=== PATIENT | male | born 1980 | race Caucasian/White ===

== ENCOUNTER 2020-12-03 09:43 | Emergency (ER) | payer SELFPAY ==
[~2020-12-03] VITALS: Ht 174 cm; Wt 74.5 kg
[2020-12-03] MEDS ORDERED: ORPHENADRINE CITRATE 60 MG/2 ML VIAL. IM ONE (10:15)
--- NOTE | 2020-12-03 10:27 | PHYS DOC ---
Past History Additional Past Medical Histor: Chronic back pain Past Surgical History: Tonsillectomy Smoking: Cigarettes Alcohol Use: Rarely Drug Use: Marijuana General Adult EDM: Chief Complaint: BACK PAIN OR INJURY HPI: HPI: Patient is a 40 year old male who presents with acute exacerbation of chronic back pain. Patient reports he has bulging disks and 2 rotated vertebrae in his low back. For the past few days, he states his pain has worsened and radiates to his right buttock. Patient took 800 mg ibuprofen about 2 hours ago. Patient states he has tried using lidocaine patches in the past, but they do not offer him significant relief. He denies any new trauma, fever/chills, urinary or bowel incontinence, paresthesias to his lower extremities. Patient has no other complaints at this time. Review of Systems: Review of Systems: ROS negative except as mentioned in HPI. Current Medications: Current Meds: Current Medications Medications (Trade) Dose Ordered Sig/Mike Start Time Stop Time Status Last Admin Dose Admin Orphenadrine Citrate (Norflex) 60 mg 1X ONCE 12/03/20 10:15 12/03/20 10:16 12/03/20 10:09 60 MG Allergies: Allergies: Allergies Coded Allergies Type Severity Reaction Last Updated Verified No Known Drug Allergies 12/03/20 No Physical Exam: PE: Constitutional: Well developed, well nourished, no acute distress, non-toxic appearance. Neck: Normal range of motion, no step-offs, no bony tenderness, no paraspinal tenderness, supple, no stridor. Cardiovascular: Heart rate regular rhythm, no murmur. Lungs & Thorax: Bilateral breath sounds clear to auscultation. Back: No step-offs, no bony tenderness, significant bilateral paraspinal spasm noted high to mid lumbar, straight leg raise test negative bilaterally. Extremities: No tenderness, no cyanosis, no clubbing, ROM intact, no edema. Neurologic: Alert and oriented x3, normal motor function, normal sensory function, no focal deficits noted. Current Patient Data: Vital Signs: Vital Signs Date Time Temp Pulse Resp B/P (MAP) Pulse Ox O2 Delivery O2 Flow Rate FiO2 12/03/20 09:50 98.1 80 18 185/83 (117) 99 Room Air Heart Score: C/O Chest Pain: No Course & Med Decision Making: Course & Med Decision Making Pertinent Labs and Imaging studies reviewed. (See chart for details) Patient states he does not like to take pain medication stronger than ibuprofen. I discussed pain and muscle spasm cycle with the patient, and he is agreeable to Norflex combined with ketorolac. He will be given Norflex IM here in the department to make sure it is not overly sedating, so that he can still work. Should he be agreeable, he will be d/c with prescriptions. I will provide a prescription for p.o. Norflex every 12h and ketorolac every 6h. He will switch back to otc ibuprofen or naproxen after 5 days ketorolac treatment. Patient understands and is agreeable to treatment plan. Dragon Disclaimer: Dragon Disclaimer: This electronic medical record was generated, in whole or in part, using a voice recognition dictation system. 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 Today, take two ketorolac as a loading dose. Take one ketorolac and one norflex 6 hours after. After another 6 hours, take one ketorolac. For days 1-5, repeat this process alternating (ketorolac every 6 hours, norflex every 12 hours). On day 6, you will replace ketorolac with either your choice of ibuprofen or naproxen according to box instructions. You may continue to take the norflex every 12 hours. Please return to the emergency department if your pain is not well controlled or worsens. You should also follow-up with your regular healthcare providers regarding chronic back pain for further management. Scripts Orphenadrine Citrate (ORPHENADRINE CITRATE) 100 Mg Tablet.er 1 TAB PO Q12HR for back spasm for 10 Days, #20 TAB 1 Refill Take 1 tablet by mouth every 12 hours. Prov: SAMANTA CHRISTOPHER 12/03/20 Ketorolac Tromethamine (KETOROLAC TROMETHAMINE) 10 Mg Tablet 1 TAB PO Q6HRS for back pain MDD 40 mg for 5 Days, #21 TAB For your first dose, take 2 tablets by mouth. Take 1 tablet by mouth every 6 hours after first dose. Prov: SAMANTA CHRISTOPHER 12/03/20 SAMANTA CHRISTOPHER Dec 03, 2020 10:27
[2020-12-03] MEDS ORDERED: ORPH-16 PO (11:03)
[2020-12-03] MEDS ORDERED: KETO10TA PO (11:03)
[2020-12-03 11:11] VITALS: BP 140/77
== END 2020-12-03 11:10 | disposition home or self-care (01) ==
LOC: ER 09:43
DX: M54.59 Other low back pain (principal); G89.29 Other chronic pain; M62.830 Muscle spasm of back; F17.210 Nicotine dependence, cigarettes, uncomplicated
CPT/HCPCS: 96372; 99283; J2360